=== PATIENT | female | born 1955 | race Caucasian/White ===

== ENCOUNTER 2023-12-06 16:50 | Emergency (ER) | payer MEDICARE, MEDICAID ==
[~2023-12-06] VITALS: Ht 175.3 cm; Wt 95.3 kg
[~2023-12-06 16:50] MED LIST: ATEN25TA PO; LISI1TAB41 PO
[2023-12-06 17:12] VITALS: BP_SYST 161; BP_SYST 169; BP_DIAS 79; BP_DIAS 87; PULSE 52; RESP 18; TEMP 97.8; O2SAT 99
[2023-12-06 17:54] LABS: BILIRUBIN,URINE NEGATIVE (NEGATIVE); LEUKOCYTE ESTERASE ,URINE 1+ (NEGATIVE); NITRATE,URINE NEGATIVE (NEGATIVE); PH,URINE 5.5 (4.5-8.0); UROBILINOGEN,URINE 0.2 E.U./dL (0.2)
[2023-12-06 18:10] LABS: APPEARANCE,URINE CLEAR; UA COLOR YELLOW
[2023-12-06 18:14] VITALS: BP 154/82; PULSE 51; RESP 18; O2SAT 97
[2023-12-06] MEDS ORDERED: MORPHINE SULFATE ONE (19:02)
[2023-12-06] MEDS ORDERED: ZOFRAN ONE (19:02)
[2023-12-06] MEDS: MORPHINE SULFATE IV STA (19:04)
[2023-12-06] MEDS: ZOFRAN IV STA (19:05)
[2023-12-06 19:15] VITALS: BP 173/85; PULSE 50; RESP 18; TEMP 97.8; O2SAT 99
[2023-12-06 19:29] LABS: BASOPHIL % 0.5 % (0.1-1.2); EOSINOPHIL % 0.5 % (0.0-5.0); HEMATOCRIT(ML) 44.1 % (36.0-46.0); HEMOGLOBIN 14.2 g/dL (12.0-15.0); LYMPHOCYTES # 1.61 10^3/uL1 (1.0-4.8); LYMPHOCYTES % 19.3 % (24.0-44.0); MEAN CORP HGB 28.9 pg (26-34); MEAN CORP HGB CONCENTRATION 32.2 g/dL (33-36.5); MEAN CORP VOLUME 89.6 fL (78-100); MONOCYTES # 0.7 10^3/uL (0.3-0.8); MONOCYTES % 7.8 % (5.0-12.0); NEUTROPHILS % 71.8 % (41.0-85.0); PLATELET COUNT 269 10^3/uL (150-400); RED BLOOD CELL 4.92 10^6/uL (4.00-5.20); RED CELL DISTRIBUTION WIDTH 13.7 % (11.5-14.5); WHITE BLOOD CELL 8.3 10^3/uL (4.5-11.0)
[2023-12-06 19:30] LABS: +ADD MANUAL DIFF(NO CHRG) NO
[2023-12-06 19:44] LABS: ALBUMIN(ML) 3.5 g/dL (3.4-5.0); ALBUMIN/GLOBULIN RATIO 0.945; ANION GAP 12.5; BUN/CREATININE RATIO 13.38 (10.0-20.0); CALCIUM 9.4 mg/dL (8.4-10.5); CARBON DIOXIDE 29.2 mmol/L (20.0-32); CREATININE SERUM 1.27 mg/dL (0.59-1.40); EST GFR, NON-AA 41.6 (>/=60); POTASSIUM 3.7 mmol/L (3.6-5.2)
[2023-12-06 20:15] VITALS: BP 136/85; PULSE 51; RESP 18; TEMP 97.8; O2SAT 99
[2023-12-06] MEDS ORDERED: FLAGYL ONE (21:05)
[2023-12-06] MEDS ORDERED: CIPRO ONE (21:05)
[2023-12-06 21:09] VITALS: BP 139/89; PULSE 50; RESP 18; TEMP 97.8; O2SAT 99
[2023-12-06] MEDS: CIPRO PO STA (21:11)
[2023-12-06] MEDS: FLAGYL PO STA (21:11)
[2023-12-06] MEDS ORDERED: AMOX1TAB12 PO (21:11)
== END 2023-12-06 21:15 | disposition home or self-care (01) ==
LOC: ER 16:50
DX: N39.0 Urinary tract infection, site not specified (principal); K57.20 Diverticulitis of large intestine with perforation and abscess without bleeding; I10 Essential (primary) hypertension; Z90.49 Acquired absence of other specified parts of digestive tract; Z90.710 Acquired absence of both cervix and uterus; Z88.2 Allergy status to sulfonamides; Z88.5 Allergy status to narcotic agent; Z88.7 Allergy status to serum and vaccine
CPT/HCPCS: 99285; 74176; 96374; 96375; 87086; 80053; 85025; 36415; 81001; J2270; J2405